=== PATIENT | female | born 1940 | race Caucasian/White ===

== ENCOUNTER 2017-09-20 16:24 | Emergency (ER) | payer SELFPAY ==
[~2017-09-20] VITALS: Ht 157.5 cm; Wt 60.0 kg
[2017-09-20] MEDS ORDERED: IBUPROFEN 400MG TABLET PO ONE (17:45)
[2017-09-20 19:09] VITALS: BP 149/63
== END 2017-09-20 19:24 | disposition home or self-care (01) ==
LOC: ER 16:36
DX: M47.812 Spondylosis without myelopathy or radiculopathy, cervical region (principal); S39.012A Strain of muscle, fascia and tendon of lower back, initial encounter; M43.22 Fusion of spine, cervical region; M48.02 Spinal stenosis, cervical region; V89.2XXA Person injured in unspecified motor-vehicle accident, traffic, initial encounter; Z98.1 Arthrodesis status
CPT/HCPCS: 72125; 99284